=== PATIENT | male | born 1955 | race Caucasian/White ===

== ENCOUNTER 2024-10-29 09:08 | Outpatient (CLI) | payer MEDICARE, SELFPAY ==
[2024-10-29] VITALS (9 sets, daily range): BP systolic 124–158; BP diastolic 77–85; PULSE 90–104; RESP 10–20; TEMP 37.2; O2SAT 94–99
--- NOTE | 2024-10-29 09:10 | DI.RAD.S_ITS ---
PROCEDURE: PAIN C/T INTERLAMINAR INJECT INDICATIONS: T2/3 translaminar PATRIA COMPARISON: None. FINDINGS/IMPRESSION: Fluoroscopic spot filming was performed to verify placement of spinal needles at the T2-T3 level(s), as labeled on the films. Appropriate location(s) of the needle tip(s) was confirmed by injection of iodinated contrast. Dictated by: Sim Salter M.D. on 10/29/2024 at 13:16 Approved by: Sim Salter M.D. on 10/29/2024 at 13:16
[2024-10-29] MEDS: MIDAZOLAM 2 MG/2 ML VIAL IV (10:12)
[2024-10-29] MEDS: DEXAMETHASONE 10 MG/ML VIAL 20 MG INJ (10:16)
[2024-10-29] MEDS: BUPIVACAINE 0.25% (PF) VIAL 2 ML INJ (10:16)
[2024-10-29] MEDS: iopamidoL 15 ML VIAL 3 ML INJ (10:16)
--- NOTE | 2024-10-29 10:44 | PM.PROC.IR.1 ---
Date/Time/Diagnoses Date of procedure: 10/29/24 Time of procedure: 10:44 Pre-procedure diagnosis: Thoracic stenosis with HNP Post-procedure diagnosis: same Procedure Notes Procedure: Fluoroscopic guided, contrast controlled T2/3 translaminar epidural steroid injection with conscious sedation. Indications: Matt is referred by MARK Vinson for treatment of thoracic DDD/DJD with radiculopathy Physician: Preston Jaimes Total Fluoroscopy time (seconds): 39 Total sedation minutes: 24 Complications: none Procedure in detail & Post-procedure care: DESCRIPTION OF PROCEDURE Fluoroscopic guided, contrast controlled T2/3 translaminar epidural steroid injection with conscious sedation. Following review of allergy review potential side effects and complications, including, but not necessarily limited to, infection, allergic reaction, local tissue breakdown, temporary as well as permanent nerve injury, stroke, paralysis and possible , the patient indicated that they understood and agreed to proceed. An informed consent document was signed by the patient, witnessed by the nurse, and placed in the patient's chart. Additionally other treatment options including modalities, medications and physical therapy were reviewed with the patient. After review of previous anaesthesic history and IV conscious sedation the patient was deemed safe to proceed with today's procedure with IV conscious sedation as ASA class II designation. Safety time-out was performed to confirm patient ID, procedure to be performed and site of procedure. IV sedation was accomplished with a combination of 2mg of Versed administered by the RN after DO order, titrated to patient comfort during the course of the procedure while the patient remained responsive to all verbal commands In the prone position, following sterile prep and drape of the thoracic region the T2/3 translaminar space was identified fluoroscopically. The skin was anesthetized via 25 gauge 1.5inch needle with 1% lidocaine solution. At this point a 22gauge epidural needle was atraumatically introduced and advanced under fluoroscopic guidance into the region of the T2/3 translaminar space depth was confirmed on lateral view. Radiographic data, including multiple fluoroscopic views of the thoracic spine, reveals spinal needle at the T2/3 translaminar space. Lateral views then showed the placement of the needle in the epidural space. Subsequent view show contrast material flowing superiorly and inferiorly in the epidural space. No vascular or intrathecal uptake is observed. At this point using loss of resistance technique with saline and the epidural space was entered. This was confirmed followed negative aspiration and injection of approximately 1.5cc of Isovue 200 showed excellent epidural flow without vascular or intrathecal uptake. At this point, 1 cc of 1% lidocaine solution was admitted as a test dose and the patient was observed for an appropriate period of time without signs or symptoms of complications, including abdominal pain, shortness of breath, bilateral upper and lower extremity weakness, nausea and vomiting, prior to steroid injection. Subsequently, 2cc or 20mg of dexamethasone was then injected without incident. The patient tolerated the procedure well without signs of complications and subsequently was transferred to the recovery room for further monitoring. The patient was then transferred to the recovery area with their observed for an appropriate time after the injection. Patient reported a VAS score of 7 prior to the procedure and post-procedure VAS of 2.
== END 2024-10-29 10:55 | disposition home or self-care (01) ==
PROVIDERS: PCP Nurse Practitioner; Referring Provider Physical Medicine & Rehabilitation; Visit Provider Physical Medicine & Rehabilitation
DX: M48.04 Spinal stenosis, thoracic region (principal); M51.14 Intervertebral disc disorders with radiculopathy, thoracic region
CPT/HCPCS: 62321; 99152; J1100; J2250; J3490